=== PATIENT | female | born 1985 | race Caucasian/White ===

== ENCOUNTER → 2019-05-31 | Day surgery (SDC) | payer BC ==
[2019-05-29 15:32] LABS: BASOPHILS % 0.3 % (0.0-1.0); EOSINOPHILS % 0.5 % (0.0-6.0); HEMATOCRIT 35.7 % (34.2-44.1); HEMOGLOBIN 12.2 g/dL (12.0-16.0); LYMPHOCYTES # (AUTO) 1.6 (1.0-3.2); LYMPHOCYTES % 43.8 % (18.0-39.1); MEAN CORPUSCULAR HEMOGLOBIN 30.6 pg (28-32); MEAN CORPUSCULAR HGB CONC 34.2 g/dL (31-35); MEAN CORPUSCULAR VOLUME 89.5 fL (81-99); MONOCYTES # (AUTO) 0.4 (0.2-0.8); MONOCYTES % 11.5 % (4.4-11.3); NEUTROPHILS # (AUTO) 1.6 (2.1-6.9); NEUTROPHILS % 43.9 % (38.7-80.0); PLATELET COUNT 230 x10e3/uL (140-360); RED BLOOD COUNT 3.99 x10e6/uL (3.6-5.1); RED CELL DISTRIBUTION WIDTH 12.3 % (11.7-14.4)
--- NOTE | 2019-05-29 16:11 | Diagnostic Imaging Report ---
EXAMINATION: CHEST 2 VIEWS INDICATION: Pre-operative COMPARISON: None FINDINGS: LINES/TUBES:None LUNGS:The lungs are well-inflated. No focal consolidation or pulmonary edema. PLEURA:No pleural effusion or pneumothorax. MEDIASTINUM:The cardiomediastinal silhouette appears normal in size and shape. BONES/SOFT TISSUES:No acute osseous injury. ABDOMEN:No free air under the diaphragm. IMPRESSION: No focal pneumonia or pulmonary edema. Signed by: Nena Isabel MD on 05/29/2019 4:07 PM
[2019-05-29 19:15] LABS: ANION GAP 14.7 mmol/L (8-16); BLOOD UREA NITROGEN 12 mg/dL (7-26); BUN/CREATININE RATIO 15 (6-25); CALCIUM 9.5 mg/dL (8.4-10.2); CARBON DIOXIDE 20 mmol/L (22-29); CHLORIDE 105 mmol/L (98-107); CREATININE, SERUM 0.79 mg/dL (0.57-1.11); EST GLOMERULAR FILTRATION RATE > 60 ML/MIN (60-); GLUCOSE 105 mg/dL (74-118); POTASSIUM 3.7 mmol/L (3.5-5.1); SODIUM 136 mmol/L (136-145)
[~2019-05-31] MED LIST: ALLEGRA ALLERG180 MG PO; BUPIVACAINE HCL 0.5% INJ 30 ML VIAL INJ ONE; DEXAMETHASONE SOD PHOS INJ 4 MG/ML VIAL ONE; FENTANYL CITRATE/PF 100MCG/2 ML INJ ONE; FLUCONAZOLE 100 MG TAB PO STA; FLUCONAZOLE 200 MG/100 ML 100 ML IV ONE; KETOROLAC TROMETHAMINE 30 MG/ML VIAL ONE; LIDOCAINE HCL 2% LOCAL INJ 5 ML SDV VIAL INJ ONE; MIDAZOLAM HCL 2 MG/2 ML VIAL ONE; NEOSTIGMINE 1 MG/ML 10ML VIAL ONE; NUVARING VAGIN1 EACH; ONDANSETRON HCL INJ 2MG/ML 2ML 2 MG/ML VIAL ONE; PROPOFOL IV EMULSION 10 MG/ML 20 ML VIAL ONE; PROZAC20 MG PO; SEVOFLURANE INHAL SOLN 250 ML PEN BTL ONE; SYNTHROID100 MCG PO
--- OUTSIDE RECORDS SUMMARY | 2019-05-31 05:55 | XMS REPORT ---
[facility] Address Unknown Phone Unavailable Care Team Providers Care Infection Control Rn Name Role Phone FOX EDEN Unavailable Unavailable Marlys DEY Unavailable Unavailable Payers Payer Name Policy Type Policy Number Effective Date Expiration Date Problems This patient has no known problems. Allergies, Adverse Reactions, Alerts Allergy Name Allergy Type Status Severity Reaction(s) Onset Date Inactive Date Treating Clinician Comments Penicillins DA Active AL 2018-11-29 00:00:00 Penicillins DA Active U 2018-11-23 00:00:00 Penicillins DA Active U 2018-07-24 00:00:00 amoxicillin DA Active SV 2011-12-30 00:00:00 Medications This patient has no known medications. Results Test Description Test Time Test Comments Text Results Atomic Results Result Comments CHEST 2 VIEWS 2019-05-29 16:06:[address] [address] Patient Name: ANTIONE DAHL MR #: [id number] : 1985 Age/Sex: 34/F Req #: [id number] Adm Physician: Ordered by: FOX EDEN DPM Report #: [id number] Location: OR Room/Bed: Procedure: [id number] DX/CHEST 2 VIEWS Exam Date: 05/29/19 Exam Time: 1530 REPORT STATUS: Signed EXAMINATION: CHEST 2 VIEWS INDICATION: Pre-operative COMPARISON: None FINDINGS: LINES/TUBES:None LUNGS:The lungs are well-inflated. No focal consolidation or pulmonary edema. PLEURA:No pleural effusion or pneumothorax. MEDIASTINUM:The cardiomediastinal silhouette appears normal in size and shape. BONES/SOFT TISSUES:No acute osseous injury. ABDOMEN:No free air under the diaphragm. IMPRESSION: No focal pneumonia or pulmonary edema. Signed by: Mark Muñiz MD on 05/29/2019 4:07 PM Dictated By: MARK MUÑIZ MD 06 Transcribed By: ESME on 05/29/191606 COPY TO: FOX EDEN DPPatrizia HEPATIC FUNCTION PANEL 2019-05-08 11:18:00 TOTAL PROTEIN (BEAKER) (test fzkk=690) 8.6 gm/dL 6.0-8.3 ALBUMIN (BEAKER) (test glhd=6640) 4.5 g/dL 3.5-5.0 BILIRUBIN TOTAL (BEAKER) (test krki=854) 0.7 mg/dL 0.2-1.2 BILIRUBIN DIRECT (BEAKER) (test qppz=025) 0.3 mg/dL 0.1-0.5 ALKALINE PHOSPHATASE (BEAKER) (test xomr=838) 75 U/L 40-150 AST (SGOT) (BEAKER) (test ycjg=385) 26 U/L 5-34 ALT (SGPT) (BEAKER) (test binu=312) 26 U/L 6-55 GAMMA GLUTAMYL TRANSFERASE (GGT)2019-05-08 11:18:00* Test Item Value Reference Range Comments GAMMA GLUTAMYL TRANSFERASE (BEAKER) (test wkjh=896) 52 U/L 9-64 [id number] 23:41:00* Test Item Value Reference Range Comments CREATININE (test code=CREAT) 0.7 mg/dL 0.5-1.0 Comments to Diesel Truck Technician: DRAW GENT LEVEL ONCE IS THIS A ONCE DAILY SINGLE DOSE? YESDATE OF LAST DOSE: 11/29/18TIME OF LAST DOSE: [id number] 23:41:00* Test Item Value Reference Range Comments GENTAMICIN (test code=GENT) 1.2 mcg/mL 0-14 Adult normal range for once daily dose of Gentamicin may beup to 24 mcg/mL. Gentamicin results must be correlated withthe time the dose was administered. Comments to Diesel Truck Technician: DRAW GENT LEVEL ONCE IS THIS A ONCE DAILY SINGLE DOSE? YESDATE OF LAST DOSE: 11/29/18TIME OF LAST DOSE: 1330- CT ABD PELVIS W/CONT 2018-11-29 10:20:00 Patient Name: ANTIONE DAHL Unit No: [id number] EXAMS: CPT CODE: [id number] CT ABD PELVIS W/CONT 16532 CT ABDOMEN WITH CONTRAST AND CT PELVIS WITHOUT CONTRAST, 11/29/2018 TECHNICAL FACTORS: Contiguous axial sections were obtained through the abdomen and pelvis after oral contrast ingestion and with IV contrast administration. COMPARISON: Prior CT abdomen and pelvis dated May 17, 2009 CLINICAL HISTORY: Status post recent section. Left lower quadrant pain One or more of the following dose techniques were utilized; automated exposure control, adjustment of the mA and/or kV according to patient size, and/or utilization of iterative reconstruction technique. DLP: 656.58 mGy-cm. A left breast implant is present. Minor dependent bibasilar atelectatic changes noted. The liver is normal in attenuation. No hepatic lesions are seen. The spleen, pancreas, and adrenals are within normal limits. The gallbladder demonstrates no radiopaque gallstones or pericholecystic fluid. Kidneys demonstrate no hydronephrosis, renal masses or opaque renal calculi. The abdominal aorta is normal in caliber. Visualized bowel loops appear unremarkable without bowel wall thickening. No right lower quadrant inflammatory process noted. The uterus is enlarged consistent with state. There is a 6.0 x 3.7 x 5.3 cm ovoid soft tissue/hyperdense focus in the anterior pelvic region, superior to the urinary bladder and deep to the rectus muscles. This likely represents a pelvic hematoma. No free pelvic fluid was seen. Mild anterior pelvic subcutaneous edema noted with a few small air [facility] NAME: ANTIONE DAHL Radiology Department PHYS: Ponce Stafford MD [address] : 1985 AGE: 33 SEX: F [place] [address] LOC: Sisi [place] PHONE #: [phone] EXAM DATE: 11/29/2018 STATUS: REG ER FAX #: [phone] RAD NO: [id number] Page 1 Signed Report 1 Patient Name: HAKAN DAHL Unit No: [id number] EXAMS: CPT CODE: [id number] CT ABD PELVIS W/CONT 36564 <Continued> bubbles in this region, presumed to be postoperative from recent section. Rectus muscles are slightly thickened. There are a few small bilateral inguinal lymph nodes. IMPRESSION: Focal anterior pelvic hematoma as described above. at 1020 Reported and signed by: Andrew Francis MD CC: Ponce Moore MD Technologist: PARMINDER RACHEL, RT CTDI: 19.42 DLP: 656.58 Trnscrbd D/ (1020) [email or web address] [facility] NAME: ANTIONE DAHL Radiology Department PHYS: Ponce Bustillo MD [address] : 1985 AGE: 33 SEX: F [place] [address] LOC: RACHELLE PHONE #: [phone] EXAM DATE: 11/29/2018 STATUS: REG ER FAX #: [phone] RAD NO: [id number] Page 2 Signed Report 1 Patient Name: ANTIONE DAHL Unit No: [id number] EXAMS: CPT CODE: [id number] CT ABD PELVIS W/CONT 95661 <Continued> Orig Print D/T: S: 11/29/2018 (1023) [facility] NAME: ANTIONE DAHL Radiology Department PHYS: Ponce Bustillo MD [address] : 1985 AGE: 33 SEX: F [place] [address] LOC: RACHELLE PHONE #: [phone] EXAM DATE: 11/29/2018 STATUS: REG ER FAX #: [phone] RAD NO: [id number] Page 3 Signed Report 1 - XR ABDOMEN 1 [id number] 08:20:00 Patient Name: ANTIONE DAHL Unit No: [id number] EXAMS: CPT CODE: [id number] XR ABDOMEN 1 V 89455 Abdomen radiographs November 29, 2018 0740 hours. COMPARISON: None. CLINICAL HISTORY: Abdominal pain since last night, 11/23/2018, hypertension Discussion: Upright view of the abdomen submitted on 2 radiographs. Moderate amount of retained fecal material is present in the colon. There is otherwise a generalized posterior bowel gas. Generalized osseous structures are within normal limits. at 0820 Reported and signed by: Trena Vazquez MD CC: Ponce Moore MD Technologist: RT Lorena Trnscrbd D/ (08) [email or web address] Orig Print D/T: S: 11/29/2018 (0823) [facility] NAME: ANTIONE DAHL Radiology Department PHYS: 14 - Ponce Moore MD [address] : 1985 AGE: 33 SEX: F [place], [place] [address] LOC: RACHELLE PHONE #: [phone] EXAM DATE: 11/29/2018 STATUS: REG ER FAX #: [phone] RAD NO: [id number] Page 1 Signed Report B-TYPE NATRIURETIC [id number] 08:08:00 * Test Item Value Reference Range Comments B-TYPE NATRIURETIC PEPTIDE (test code=BNP) 132.60 pg/mL 0-100 CHEMISTRY 7 [id number] 08:05:00* Test Item Value Reference Range Comments SODIUM (test code=NA) 139 mEq/L 135-145 POTASSIUM (test code=K) 4.0 mEq/L 3.5-5.0 CHLORIDE (test code=CL) 103 mEq/L 100-115 CARBON DIOXIDE (test code=CO2) 26 mEq/L 22-31 ANION GAP (test code=GAP) 13.70 10-20 GLUCOSE (test code=GLU) 90 mg/dL 65-110 BLOOD UREA NITROGEN (test code=BUN) 16 mg/dL 7-18 GLOMERULAR FILTRATION RATE (test code=GFR) 96 ml/min >60 CREATININE (test code=CREAT) 0.7 mg/dL 0.5-1.0 CALCIUM (test code=CA) 7.9 mg/dL 8.4-10.2 URIC [id number] 08:05:00* Test Item Value Reference Range Comments URIC ACID (test code=URIC) 6.9 mg/dL 2.6-6.0 CPK-MB [id number] 08:05:00* Test Item Value Reference Range Comments CREATINE KINASE (CK) (test code=CK) 103 Units/L 26-192 CKMB (test code=CKMBT) 1.5 ng/mL 0-3.6 RELATIVE % INDEX (test code=REL%) 1.456 0.0-5.0 [id number] 08:05:00* Test Item Value Reference Range Comments TROPONIN-I (test code=TROPI) <0.017 ng/mL <0.056 CHEMISTRY 7 [id number] 07:51:00* Test Item Value Reference Range Comments SODIUM (test code=NA) 139 mEq/L 135-145 POTASSIUM (test code=K) 4.0 mEq/L 3.5-5.0 CHLORIDE (test code=CL) 103 mEq/L 100-115 CARBON DIOXIDE (test code=CO2) 26 mEq/L 22-31 ANION GAP (test code=GAP) 13.70 10-20 GLUCOSE (test code=GLU) 90 mg/dL 65-110 GLOMERULAR FILTRATION RATE (test code=GFR) 96 ml/min >60 CREATININE (test code=CREAT) 0.7 mg/dL 0.5-1.0 CALCIUM (test code=CA) 7.9 mg/dL 8.4-10.2 URIC [id number] 07:51:00* Test Item Value Reference Range Comments URIC ACID (test code=URIC) 6.9 mg/dL 2.6-6.0 CPK-MB [id number] 07:51:00* Test Item Value Reference Range Comments CREATINE KINASE (CK) (test code=CK) 103 Units/L 26-192 CKMB (test code=CKMBT) 1.5 ng/mL 0-3.6 RELATIVE % INDEX (test code=REL%) 1.456 0.0-5.0 [id number] 07:51:00* Test Item Value Reference Range Comments TROPONIN-I (test code=TROPI) <0.017 ng/mL <0.056 - XR CHEST 1 [id number] 07:47:00 Patient Name: ANTIONE DAHL Unit No: [id number] EXAMS: CPT CODE: [id number] XR CHEST 1 V 47493 One view chest performed November 29, 2018 0739 hours. COMPARISON: May 17, 2009. CLINICAL HISTORY: Abdominal pain since last night. C- section 11/23/2018. Hypertension DISCUSSION: Single one view chest is submitted. Lungs are clear. Heart size and osseous structures are within normal limits. IMPRESSION: Normal one view chest x-ray. at 0747 Reported and signed by: Trena Vazquez MD CC: Ponce Moore MD Technologist: RT Lorena Trnscrbd D/ (0747) [email or web address] Orig Print D/T: S: 11/29/2018 (0750) [facility] NAME: ANTIONE DAHL Radiology Department PHYS: PATSH.14 - Ponce Moore MD [address] : 0 1985 AGE: 33 SEX: F [place], [place] [address] ACCT NO: [id number] LOC: F.ERS PHONE #: [phone] EXAM DATE: 11/29 STATUS: REG ER FAX #: [phone] RAD NO: [id number] [facility] 1 Signed Report PROTHROMBIN [id number] 07:44:00* Test Item Value Reference Range Comments PROTHROMBIN TIME PATIENT (test code=PTP) 10.8 secs 10.4-12.4 IS PATIENT ON ANTICOAGULANTS ? NINTERNATIONAL NORMAL [id number] 07:44:00* Test Item Value Reference Range Comments INTERNATIONAL NORMAL RATIO (test code=INR) 0.97 The INR is to be used only for monitoring oral anticoagulanttherapy. INDICATION INR VALUE 1. Prophylaxis including high risk surgery 2.0 - 2.52. Deep venous thrombosis. Pulmonary embolism. Atrial fibrillation or bioprosthetic heart valves 2.0 - 3.03. Mechanical heart valves or recurrent systemic embolism. 3.0 - 3.5 IS PATIENT ON ANTICOAGULANTS ? NTHROMBOPLASTIN TIME [id number] 07:44:00* Test Item Value Reference Range Comments THROMBOPLASTIN TIME PARTIAL (test code=PTT) 29.0 secs 22-38 IS PATIENT ON ANTICOAGULANTS ? NCBC W/AUTO [id number] 07:23:00* Test Item Value Reference Range Comments WHITE BLOOD CELL (test code=WBC) 7.1 K/mm3 6.6-12.1 RED BLOOD CELL (test code=RBC) 3.38 M/mm3 3.45-5.01 HEMOGLOBIN (test code=HGB) 10.0 g/dL 10.7-13.9 HEMATOCRIT (test code=HCT) 31.0 % 32.1-42.1 MEAN CELL VOLUME (test code=MCV) 92 fL 84.1-94.8 MEAN CELL HGB (test code=MCH) 29.6 pg 27-35 MEAN CELL HGB CONCETRATION (test code=MCHC) 32.3 gm/dL 32.2-34.1 RED CELL DISTRIBUTION WIDTH (test code=RDW) 13.5 % 12.4-16.5 PLATELET COUNT (test code=PLT) 247 K/mm3 133-385 IMMATURE PLATELET FRACTION (test code=IPF) 0.0 % 0.0-10.8 MEAN PLATELET VOLUME (test code=MPV) 9.4 fl 9.1-12.7 NEUTROPHIL % (test code=NT%) 69.7 % 56.5-79.4 LYMPHOCYTE % (test code=LY%) 20.2 % 14.3-34.3 MONOCYTE % (test code=MO%) 7.6 % 5.1-10.4 EOSINOPHIL % (test code=EO%) 1.8 % 0.1-3.0 BASOPHIL % (test code=BA%) 0.1 % 0.1-1.0 NEUTROPHIL # (test code=NT#) 4.9 K/mm3 LYMPHOCYTE # (test code=LY#) 1.4 K/mm3 MONOCYTE # (test code=MO#) 0.5 K/mm3 EOSINOPHIL # (test code=EO#) 0.13 K/mm3 BASOPHIL # (test code=BA#) 0.0 K/mm3 RBC MORPHOLOGY REQUIRED (test code=RBCM) NORMAL NORMAL PLATELET MORPHOLOGY REQUIRED (test code=PLTMR) NORMAL NORMAL UA RFLX MICR CULT IF [id number] 07:06:00* Test Item Value Reference Range Comments UA COLOR (test code=COLU) YELLOW YELLOW UA APPEARANCE (test code=APPU) CLEAR CLEAR UA GLUCOSE DIPSTICK (test code=DGLUU) NEGATIVE NEG UA BILIRUBIN DIPSTICK (test code=BILU) NEGATIVE NEG UA KETONE DIPSTICK (test code=KETU) NEGATIVE NEG UA SPECIFIC GRAVITY (test code=SGU) 1.015 1.001-1.035 UA BLOOD DIPSTICK (test code=JOB) 3+ NEG UA PH DIPSTICK (test code=ROYAL) 5.0 5-9 UA PROTEIN DIPSTICK (test code=PROU) NEGATIVE NEG UA UROBILINIOGEN DIPSTICK (test code=URO) NEGATIVE mg/dL NEG UA NITRITE DIPSTICK (test code=RONA) NEG NEG UA LEUKOCYTE ESTERASE DIPSTICK (test code=LEUU) 1+ NEG UA WBC (test code=WBCU) 16-20 #/hpf NONE SEEN UA RBC (test code=RBCU) TOO NUMEROUS TO CNT #/hpf NONE SEEN UA EPITHELIAL CELLS (test code=EPIU) RARE #/HPF RARE-FEW UA BACTERIA (test code=BACU) RARE /HPF RARE-FEW UA MUCUS (test code=MUCU) RARE NONE SEEN Comments to Diesel Truck Technician: Clean CatchSpecimen Comment: Clean CatchHGB HCT 2018-11-24 07:57:00* Test Item Value Reference Range Comments HEMOGLOBIN (test code=HGB) 9.6 g/dL 10.7-13.9 HEMATOCRIT (test code=HCT) 29.0 % 32.1-42.1 AG HEPATITIS B [id number] 04:08:00* Test Item Value Reference Range Comments AG HEPATITIS B SURFACE (test code=HBSAG) NONREACTIVE NONREACTIVE Comments to Diesel Truck Technician: with consentIS CONSENT FORM SIGNED FOR HIV TESTING? N AB HEPATITIS C [id number] 04:08:00* Test Item Value Reference Range Comments AB HEPATITIS C (test code=HCVAB) NONREACTIVE NONREACTIVE SIGNAL TO CUTOFF (test code=CUTOFF) 0.08 <0.80 Comments to Diesel Truck Technician: with consentIS CONSENT FORM SIGNED FOR HIV TESTING? N AB [id number] 04:08:00* Test Item Value Reference Range Comments AB TREPONEMA (test code=TREPAB) NONREACTIVE NONREACTIVE Comments to Diesel Truck Technician: with consentIS CONSENT FORM SIGNED FOR HIV TESTING? N AB HIV 1 04:08:00* Test Item Value Reference Range Comments AB HIV 1 2 (test code=[id number]) NONREACTIVE NONREACTIVE Done by [employer] 4[employer] Gen HIV Ag/Ab Combo Screen Comments to Diesel Truck Technician: with consentIS CONSENT FORM SIGNED FOR HIV TESTING? N AG HEPATITIS B [id number] 03:41:00* Test Item Value Reference Range Comments AG HEPATITIS B SURFACE (test code=HBSAG) NONREACTIVE NONREACTIVE Comments to Diesel Truck Technician: with consentIS CONSENT FORM SIGNED FOR HIV TESTING? N AB HEPATITIS C [id number] 03:41:00* Test Item Value Reference Range Comments AB HEPATITIS C (test code=HCVAB) NONREACTIVE SIGNAL TO CUTOFF (test code=CUTOFF) <0.80 Comments to Diesel Truck Technician: with consentIS CONSENT FORM SIGNED FOR HIV TESTING? N AB [id number] 03:41:00* Test Item Value Reference Range Comments AB TREPONEMA (test code=TREPAB) NONREACTIVE NONREACTIVE Comments to Diesel Truck Technician: with consentIS CONSENT FORM SIGNED FOR HIV TESTING? N AB HIV 1 03:41:00* Test Item Value Reference Range Comments AB HIV 1 2 (test code=ELD52UZ) NONREACTIVE Comments to Diesel Truck Technician: with consentIS CONSENT FORM SIGNED FOR HIV TESTING? N PROTHROMBIN [id number] 02:11:00* Test Item Value Reference Range Comments PROTHROMBIN TIME PATIENT (test code=PTP) 10.4 secs 10.4-12.4 THROMBOPLASTIN TIME [id number] 02:11:00* Test Item Value Reference Range Comments THROMBOPLASTIN TIME PARTIAL (test code=PTT) 25.1 secs 22-38 [id number] 02:11:00* Test Item Value Reference Range Comments FIBRINOGEN (test code=FIB) 554 mg/dL 309-518 PIH [id number] 02:10:00* Test Item Value Reference Range Comments CREATININE (test code=CREAT) 0.7 mg/dL 0.5-1.0 SGOT/AST (test code=AST) 20 units/L 15-37 SGPT/ALT (test code=ALT) 15 units/L 12-78 LACTIC DEHYDROGENASE(LDH) (test code=LDH) 143 units/L 81-234 : *COMPREHENSIVE METABOLIC [id number] 02:10:00* Test Item Value Reference Range Comments SODIUM (test code=NA) 137 mEq/L 135-145 POTASSIUM (test code=K) 3.9 mEq/L 3.5-5.0 CHLORIDE (test code=CL) 104 mEq/L 100-115 CARBON DIOXIDE (test code=CO2) 24 mEq/L 22-31 ANION GAP (test code=GAP) 13.20 10-20 GLUCOSE (test code=GLU) 112 mg/dL 65-110 BLOOD UREA NITROGEN (test code=BUN) 10 mg/dL 7-18 GLOMERULAR FILTRATION RATE (test code=GFR) 96 ml/min >60 TOTAL PROTEIN (test code=PROT) 6.5 gm/dL 6.3-8.2 ALBUMIN (test code=ALB) 2.3 gm/dL 3.4-4.8 CALCIUM (test code=CA) 8.8 mg/dL 8.4-10.2 BILIRUBIN TOTAL (test code=BILT) 0.3 mg/dL 0.2-1.0 ALKALINE PHOSPHATASE TOTAL (test code=ALKP) 187 units/L 46-116 : *URIC [id number] 02:10:00* Test Item Value Reference Range Comments URIC ACID (test code=URIC) 7.3 mg/dL 2.6-6.0 : *URINALYSIS [id number] 02:04:00* Test Item Value Reference Range Comments UA COLOR (test code=COLU) YELLOW YELLOW UA APPEARANCE (test code=APPU) CLEAR CLEAR UA GLUCOSE DIPSTICK (test code=DGLUU) NEGATIVE NEGATIVE UA BILIRUBIN DIPSTICK (test code=BILU) NEGATIVE NEGATIVE UA KETONE DIPSTICK (test code=KETU) NEGATIVE NEGATIVE UA SPECIFIC GRAVITY (test code=SGU) 1.010 1.001-1.035 UA BLOOD DIPSTICK (test code=JOB) 1+ NEGATIVE UA PH DIPSTICK (test code=ROYAL) 6.0 5-9 UA PROTEIN DIPSTICK (test code=PROU) NEGATIVE NEGATIVE UA UROBILINIOGEN DIPSTICK (test code=URO) 0.2 EU/dL <=1.0 UA NITRITE DIPSTICK (test code=RONA) NEGATIVE NEGATIVE UA LEUKOCYTE ESTERASE DIPSTICK (test code=LEUU) 1+ NEGATIVE UA WBC (test code=WBCU) 21-30 #/hpf NONE SEEN UA RBC (test code=RBCU) 5-10 #/hpf NONE SEEN UA EPITHELIAL CELLS (test code=EPIU) FEW #/hpf NONE SEEN UA BACTERIA (test code=BACU) FEW #/hpf NONE SEEN URINE SAMPLE: CLEAN CATCHCBC W/AUTO [id number] 02:02:00* Test Item Value Reference Range Comments WHITE BLOOD CELL (test code=WBC) 8.6 K/mm3 6.6-12.1 RED BLOOD CELL (test code=RBC) 3.97 M/mm3 3.45-5.01 HEMOGLOBIN (test code=HGB) 11.9 g/dL 10.7-13.9 HEMATOCRIT (test code=HCT) 36.0 % 32.1-42.1 MEAN CELL VOLUME (test code=MCV) 91 fL 84.1-94.8 MEAN CELL HGB (test code=MCH) 30.0 pg 27-35 MEAN CELL HGB CONCETRATION (test code=MCHC) 33.1 gm/dL 32.2-34.1 RED CELL DISTRIBUTION WIDTH (test code=RDW) 13.8 % 12.4-16.5 PLATELET COUNT (test code=PLT) 236 K/mm3 133-385 IMMATURE PLATELET FRACTION (test code=IPF) 0.0 % 0.0-10.8 MEAN PLATELET VOLUME (test code=MPV) 10.3 fl 9.1-12.7 NEUTROPHIL % (test code=NT%) 65.1 % 56.5-79.4 LYMPHOCYTE % (test code=LY%) 26.8 % 14.3-34.3 MONOCYTE % (test code=MO%) 6.6 % 5.1-10.4 EOSINOPHIL % (test code=EO%) 0.7 % 0.1-3.0 BASOPHIL % (test code=BA%) 0.1 % 0.1-1.0 NEUTROPHIL # (test code=NT#) 5.6 K/mm3 LYMPHOCYTE # (test code=LY#) 2.3 K/mm3 MONOCYTE # (test code=MO#) 0.6 K/mm3 EOSINOPHIL # (test code=EO#) 0.06 K/mm3 BASOPHIL # (test code=BA#) 0.0 K/mm3 RBC MORPHOLOGY REQUIRED (test code=RBCM) NORMAL NORMAL PLATELET MORPHOLOGY REQUIRED (test code=PLTMR) NORMAL NORMAL HEPATIC FUNCTION [id number] 16:57:00* Test Item Value Reference Range Comments TOTAL PROTEIN (BEAKER) (test cuwo=884) 7.2 gm/dL 6.0-8.3 ALBUMIN (BEAKER) (test djuz=5624) 3.7 g/dL 3.5-5.0 BILIRUBIN TOTAL (BEAKER) (test lnyg=003) 0.3 mg/dL 0.2-1.2 BILIRUBIN DIRECT (BEAKER) (test hgrq=849) 0.1 mg/dL 0.1-0.5 ALKALINE PHOSPHATASE (BEAKER) (test juaq=452) 45 U/L 40-150 AST (SGOT) (BEAKER) (test bvqw=112) 18 U/L 5-34 ALT (SGPT) (BEAKER) (test vesu=365) 14 U/L 6-55 BASIC METABOLIC [id number] 16:57:00* Test Item Value Reference Range Comments SODIUM (BEAKER) (test wpqd=240) 136 meq/L 136-145 POTASSIUM (BEAKER) (test rdpw=524) 3.6 meq/L 3.5-5.1 CHLORIDE (BEAKER) (test ayev=458) 103 meq/L 98-107 CO2 (BEAKER) (test xkfw=557) 24 meq/L 22-29 BLOOD UREA NITROGEN (BEAKER) (test pvqr=814) 13 mg/dL 7-21 CREATININE (BEAKER) (test kwlw=584) 0.61 mg/dL 0.57-1.25 GLUCOSE RANDOM (BEAKER) (test aevj=511) 80 mg/dL 70-105 CALCIUM (BEAKER) (test drbv=844) 9.1 mg/dL 8.4-10.2 EGFR (BEAKER) (test sdat=9353) 112 mL/min/1.73 sq m ESTIMATED GFR IS NOT ACCURATE CREATININE CLEARANCE IN PREDICTING GLOMERULAR FILTRATION RATE. ESTIMATED GFR IS NOT APPLICABLE FOR DIALYSIS PATIENTS. CBC W/PLT COUNT & AUTO [id number] 16:27:00* Test Item Value Reference Range Comments WHITE BLOOD CELL COUNT (BEAKER) (test qkrm=344) 6.3 K/ L 3.5-10.5 RED BLOOD CELL COUNT (BEAKER) (test txrs=616) 3.65 M/ L 3.93-5.22 HEMOGLOBIN (BEAKER) (test kouw=445) 11.0 GM/DL 11.2-15.7 HEMATOCRIT (BEAKER) (test jqce=394) 33.1 % 34.1-44.9 MEAN CORPUSCULAR VOLUME (BEAKER) (test gzdm=108) 90.7 fL 79.4-94.8 MEAN CORPUSCULAR HEMOGLOBIN (BEAKER) (test fpse=372) 30.1 pg 25.6-32.2 MEAN CORPUSCULAR HEMOGLOBIN CONC (BEAKER) (test ptil=807) 33.2 GM/DL 32.2-35.5 RED CELL DISTRIBUTION WIDTH (BEAKER) (test xxqp=477) 12.8 % 11.7-14.4 PLATELET COUNT (BEAKER) (test nkgt=097) 250 K/CU MM 150-450 MEAN PLATELET VOLUME (BEAKER) (test siun=757) 10.2 fL 9.4-12.3 MPV-Approximately 20% positive bias due to method change. NUCLEATED RED BLOOD CELLS (BEAKER) (test ansa=289) 0 /100 WBC 0-0 NEUTROPHILS RELATIVE PERCENT (BEAKER) (test uifl=650) 65 % LYMPHOCYTES RELATIVE PERCENT (BEAKER) (test xghr=289) 25 % MONOCYTES RELATIVE PERCENT (BEAKER) (test rqow=450) 8 % EOSINOPHILS RELATIVE PERCENT (BEAKER) (test cqfb=802) 1 % BASOPHILS RELATIVE PERCENT (BEAKER) (test nbgh=888) 0 % NEUTROPHILS ABSOLUTE COUNT (BEAKER) (test zsrs=172) 4.09 K/ L 1.56-6.13 LYMPHOCYTES ABSOLUTE COUNT (BEAKER) (test gjbu=177) 1.60 K/ L 1.18-3.74 MONOCYTES ABSOLUTE COUNT (BEAKER) (test snwv=216) 0.53 K/ L 0.24-0.36 EOSINOPHILS ABSOLUTE COUNT (BEAKER) (test khkc=361) 0.04 K/ L 0.04-0.36 BASOPHILS ABSOLUTE COUNT (BEAKER) (test mmfk=103) 0.01 K/ L 0.01-0.08 IMMATURE GRANULOCYTES-RELATIVE PERCENT (BEAKER) (test ejnx=9174) 0 % 0-1
[2019-05-31 10:20] VITALS: BP 141/91
--- NOTE | 2019-06-01 01:53 | Operative Report ---
DATE OF PROCEDURE: 05/31/2019 SURGEON: Andreas Arias DPM ROOM NUMBER: [facility]. PREOPERATIVE DIAGNOSIS: Hallux abductovalgus deformity of the right foot, ingrown toenail right hallux lateral border. POSTOPERATIVE DIAGNOSIS: Hallux abductovalgus deformity of the right foot, ingrown toenail right hallux lateral border. TITLE OF OPERATION: Modified Yosvany bunionectomy of the right foot and a partial nail avulsion of the right hallux. ANESTHESIA: General endotracheal. HEMOSTASIS: A right thigh tourniquet at 350 mmHg. PROCEDURE IN DETAIL: The patient was taken to the operating room in a mildly sedated state, placed on the operating table in supine position. Following induction of general anesthetic, the right lower extremity was placed supine on the operating table prior to performing the following procedure. Procedure #1: Modified Yosvany bunionectomy. An approximate 6 cm dorsal linear incision was made across dorsal medial aspect of first metatarsophalangeal joint of right foot. Incision was deepened via sharp and blunt dissection below the dorsal capsular structure. Care was taken to identify and retract all vital structures encountered. The head of the first metatarsal was delivered. The surgical site remodeled utilizing oscillating saw, conjoined tendon of the adductor hallucis muscle was identified and tenotomized through and through V osteotomy was placed with apex distally and based proximal, which allowed for relative shift lateralward of the head of the proximal segment, which then impacted and stabilized with two cortical bone screws. The medial eminence having just been remodeled both with oscillating saw and a rotary bur. The fixation being solid. The area was irrigated with copious amounts of sterile saline solution. Fluoroscopy was used. The appropriate deep wound closure with 3-0 Vicryl was performed and the subcutaneous skin was closed with 4-0 prolene. The areas of surgery then blocked with 0.5 Marcaine and Decadron [place]. Released the pneumatic thigh tourniquet showed normal hyperemic flush to all digits of the right foot. The hallux was addressed with a Morro drain and a partial nail avulsion was performed utilizing a nail Nipper and a 62 blade to remove the offending border from the right hallux lateral. Curette was used to smooth the edge. The area was irrigated with copious amounts of sterile saline solution and the appropriate mildly compressive dressings were applied with ointment and Coban. The patient left the operating room, vital signs stable in apparent satisfactory condition, having tolerated both anesthetic and procedure very well. PEDRO Blanca/CYNTHIA /[id number]
== END | disposition home or self-care (01) ==
LOC: OR 05:43
PROVIDERS: ATTEND Podiatrist Foot Surgery
DX: M20.11 Hallux valgus (acquired), right foot (principal); L60.0 Ingrowing nail; E03.9 Hypothyroidism, unspecified; I10 Essential (primary) hypertension; F41.9 Anxiety disorder, unspecified; Z88.0 Allergy status to penicillin; Z01.810 Encounter for preprocedural cardiovascular examination; Z01.812 Encounter for preprocedural laboratory examination; Z01.818 Encounter for other preprocedural examination
CPT/HCPCS: 11730; 28296; 36415; 71046; 80048; 81025; 85025; 93005; C1713 ×4; J1100; J1450; J1885; J2001; J2250; J2405; J2704; J2710; J3010; Q4100